=== PATIENT | female | born 1980 | race Caucasian/White ===

== ENCOUNTER 2017-04-21 10:28 | Emergency (ER) | payer SELFPAY ==
[~2017-04-21] VITALS: Ht 172.7 cm; Wt 105.4 kg
[~2017-04-21 10:28] MED LIST: ENDOCET 5-3251 EACH PO; MOTRIN800 MG PO
[2017-04-21 10:49] LABS: HEMATOCRIT 39.6 % (36.0-46.0); MCH 30.4 PG (29.0-34.0); MCHC 33.6 G/DL (30.0-36.0); MCV 90.4 FL (83-99); PLATELET COUNT 370 K/uL (156-360); RBC DIS.WIDTH-CV 12.7 % (11.8-14.6); RBC DIS.WIDTH-SD 41.9 % (39-53); RED BLOOD COUNT 4.38 M/uL (3.80-5.20); WHITE BLOOD COUNT 11.5 K/uL (4.1-10.2)
[2017-04-21 10:58] LABS: ADD MIUA? YES; BILIRUBIN NEGATIVE; BLOOD NEGATIVE; COLOR YELLOW ((YELLOW)); GLUCOSE (STRIP) NEGATIVE; KETONES NEGATIVE; LEUKOCYTES NEGATIVE; NITRITE NEGATIVE; PROTEIN (STRIP) 30; UROBILINOGEN 0.2 MG/DL (0.2-1.0)
[2017-04-21 11:06] LABS: CHLORIDE 101 mEq/L (99-109); POTASSIUM 4.4 mEq/L (3.7-5.4); SODIUM 140 mEq/L (136-147)
[2017-04-21 11:08] LABS: GLUCOSE 100 mg/dL (70-99)
[2017-04-21 11:09] LABS: ANION GAP 15 MEQ/L (2-14)
[2017-04-21 11:10] LABS: TOTAL BILIRUBIN 0.4 mg/dL (0.0-1.0)
[2017-04-21 11:12] LABS: ALKALINE PHOSPHATASE 63 IU/L (3-129); GFR ESTIMATE (CALCULATED) > 59 mL/min/
[2017-04-21 11:13] LABS: UREA NITROGEN (BUN) 10 mg/dL (9-23)
[2017-04-21 11:20] LABS: BACTERIA 1+ /HPF; EPITHELIAL CELLS 1+ /HPF; MUCUS TRACE /LPF; RED BLOOD CELLS 0-5 /HPF (0-5); UCUL ADDED? NO; WHITE BLOOD CELLS 0-5 /HPF (0-5)
[2017-04-21 11:21] LABS: QUANTITATIVE HCG < 4.0 MIU/ML
[2017-04-21 11:53] LABS: AMYLASE 13 IU/L (1-118)
[2017-04-21 12:01] LABS: LIPASE 24 U/L (1.0-51.0)
[2017-04-21] MEDS ORDERED: NAPROSYN500 MG PO (12:49)
[2017-04-21] MEDS ORDERED: ZOFRAN4 MG PO (12:49)
[2017-04-21] MEDS ORDERED: PERCOCET 5/31 TABLET PO (12:49)
[2017-04-21 13:09] VITALS: BP 134/88
== END 2017-04-21 13:10 | disposition home or self-care (01) ==
LOC: EME 10:28
DX: R10.11 Right upper quadrant pain (principal); R10.31 Right lower quadrant pain; R11.0 Nausea; Z87.891 Personal history of nicotine dependence
CPT/HCPCS: 76705; 80053; 81003; 82150; 83690; 84702; 85027; 99281; 99284

== ENCOUNTER 2018-03-09 13:13 | Emergency (ER) | payer BC ==
[~2018-03-09] VITALS: Ht 172.7 cm; Wt 102.7 kg
[~2018-03-09 13:13] MED LIST changes: +NAPROSYN500 MG PO; +PERCOCET 5/31 TABLET PO; +ZOFRAN4 MG PO
[2018-03-09] MEDS ORDERED: CIPRODEX OTIC7.5 ML LEFT EAR (14:04)
[2018-03-09] MEDS ORDERED: MOTRIN600 MG PO (14:04)
[2018-03-09] MEDS ORDERED: AUGMENTIN875 MG PO (14:04)
[2018-03-09] MEDS ORDERED: TRAMADOL HCL50 MG PO (14:04)
[2018-03-09 14:36] VITALS: BP 165/107
== END 2018-03-09 14:53 | disposition home or self-care (01) ==
LOC: EME 13:13
DX: H60.92 Unspecified otitis externa, left ear (principal); Z87.891 Personal history of nicotine dependence
CPT/HCPCS: 99281; 99284; J1885